=== PATIENT | male | born 1990 | race Caucasian/White ===

== ENCOUNTER 2020-05-25 03:50 | Observation (INO) | payer BC, SELFPAY ==
[2020-05-25] VITALS (14 sets, daily range): BP systolic 116–146; BP diastolic 64–91; PULSE 53–72; RESP 8–21; TEMP 36.1–37; O2SAT 97–100; BMI 22.1
--- NOTE | ~2020-05-25 | XR_ITS ---
EXAMINATION: XR finger 1st LT min 2V DATE: 05/25/2020 04:30 INDICATION: Wound at the first digit of the left hand TECHNIQUE: Dorsal palmar, lateral and oblique views of the left first digit were obtained COMPARISON: None FINDINGS: Prominent soft tissue swelling about the left thumb with suggestion of a laceration along the ulnar s maryann of the thumb. No radiopaque foreign bodies. Bone alignment is normal. No fracture. Joint spaces a re normal. IMPRESSION: 1. No osseous abnormality or radiopaque foreign body. Reviewed, dictated and finalized at location A.
--- NOTE | 2020-05-25 04:06 | ED.UPPEXIN ---
HPI - Extremity Injury (Upper) General Chief Complaint: Extremity Injury, Upper Stated Complaint: left thumb infected Time Seen by Provider: 05/25/20 03:55 Source: RN notes reviewed History of Present Illness HPI narrative: Patient presents emergency department from home for left thumb wound. Patient states symptoms began proximally 1 week ago and progressively worsened with increasing size of wound. He states the pain is increasingly worsened as well and would open this evening beginning to drain some purulent drainage. He states he works in construction and does not know if there is initial cut or possible foreign body to the area he denies any known trauma or injury. States pain with any movement of the thumb or with touching the thumb denies any fevers or chills or any other symptoms Related Data Home Medications Medication Instructions Recorded Confirmed No Home Medications 05/25/20 05/25/20 Allergies Allergy/AdvReac Type Severity Reaction Status Date / Time No Known Allergies Allergy Mild Verified 05/25/20 03:51 Review of Systems Review of Systems: Narrative: Gen.: Denies fevers or chills ENT: Denies congestion Respiratory: Denies shortness of breath or cough CV: Denies chest pain GI: Denies abdominal pain nausea, emesis Musculoskeletal: Right hand pain Neuro: Denies numbness, tingling, weakness or focal weakness Skin: See HPI Except as documented, all other systems reviewed and negative PMFSH Past Medical History Medical History (Updated 05/25/20 @ 05:29 by Warren Cantrell DO) Patient denies significant medical history Social History Social History (Updated 05/25/20 @ 04:08 by Warren Cantrell DO) Smoking packs per day: 0.5 Smoking cigarettes per day: 10.0 Gender identity (if verbalized by the patient): Male Exam Narrative: Exam Narrative: APPEARANCE: No acute distress, nontoxic, resting in bed EYES: EOMI HEENT: Normocephalic, atraumatic, OMM RESPIRATORY: No respiratory distress Clear to auscultation bilaterally with no rhonchi wheezing or rales. CARDIOVASCULAR: Regular rate and rhythm without murmurs rubs or gallops. ABDOMINAL: Soft, nontender, nondistended, no rebound or guarding MUSCULOSKELETAl: Moves all extremities. No clubbing, cyanosis or edema. The left thumb is diffusely swollen and erythematous with a large area of fluctuance and then smaller purulent drainage over the medial aspect pain with any movement of the first IP or MCP joint, the remainder of the hand is not swollen with full flexion-extension of MCP and IP joints 2 through 5, radial pulse 2+, neurovascular intact NEURO: Awake and alert. Following commands, speech normal, no focal deficits SKIN:: Warm, dry. No rashes lesions or abrasions except as noted in musculoskeletal PSYCHIATRIC: Normal affect/mood, Course Course Emergency Course: Discussed with Dr. Nicholas presentation work-up. Agrees with plan for Ancef with patient remain n.p.o. plan for or later today. Request admission the hospital service Discussed with Dr. Muniz presentation work-up. Agrees with admission at this time Discussed with patient and family results of workup and diagnosis. Discussed need for admission. Patient and family understand and agree to current treatment plan Vital Signs Vital signs: Vital Signs Temperature 97.3 F L 05/25/20 03:57 Pulse Rate 71 05/25/20 03:57 Respiratory Rate 18 05/25/20 03:57 Blood Pressure 138/69 05/25/20 03:57 Pulse Oximetry 100 05/25/20 03:57 Temperature 97.3 F L 05/25/20 03:57 Pulse Rate 71 05/25/20 03:57 Respiratory Rate 18 05/25/20 03:57 Blood Pressure 138/69 05/25/20 03:57 Pulse Oximetry 100 05/25/20 03:57 MDM - Extremity Injury (Upper) Lab Data Result diagrams: 05/25/20 04:22 05/25/20 04:22 Labs: Lab Results 05/25/20 05/25/20 05/25/20 Range/Units 04:22 04:22 04:22 WBC 9.8 (4.5-10.0) K/mm3 RBC 3.80 L (4.6-6.20) M/m
[2020-05-25 04:33] LABS: Basophils Absolute Auto 0.1 K/mm3 (0.0-0.1); Basophils Percent Auto 0.5 % (0.2-1.2); Eosinophils Absolute Auto 0.5 K/mm3 (0-0.3); Eosinophils Percent Auto 4.6 % (0-4.4); Hematocrit 33.7 % (42.0-52.0); Hemoglobin 11.9 g/dL (14.0-18.0); Immature Granulocyte Absolute 0.03 K/mm3 (0.00-0.031); Immature Granulocyte Percent A 0.3 % (0-0.5); Lymphocytes Absolute Auto 2.54 K/mm3 (0.9-3.2); Lymphocytes Percent Auto 26.1 % (18.3-44.2); Mean Corpuscular HGB Conc 35.3 g/dl (32-36); Mean Corpuscular Hemoglobin 31.3 pg (26-34); Mean Corpuscular Volume 88.7 fl (80-100); Mean Platelet Volume 9.6 fl (7.4-10.4); Monocytes Absolute Auto 0.7 K/mm3 (0.1-0.6); Monocytes Percent Auto 6.9 % (2.6-8.5); Neutrophils Percent Auto 61.6 % (45.5-73.1); Platelet Count Result 253 k/mm3 (150-375); Red Cell Distribution Width 11.9 % (11.5-14.5); White Blood Count 9.8 K/mm3 (4.5-10.0)
[2020-05-25 04:43] LABS: Prothrombin Time 12.5 Seconds (11.1-14.7)
[2020-05-25 04:44] LABS: Partial Thromboplastin Time 31.3 SECONDS (22.3-36.8)
[2020-05-25 04:44] LABS: Blood Urea Nitrogen 14 mg/dL (9-20); Calcium 8.5 mg/dL (8.4-10.2); Carbon Dioxide 28 mmol/L (22-30); Chloride 102 mmol/L (98-107); Estimated CRCL calculation 134 ml/min; Estimated Glomerular Filt Rate > 60; Glucose 91 mg/dL (75-110); Lactic Acid Reflex 0.9 mmol/L (0.7-2.1); Potassium 3.8 mmol/L (3.4-5.0); Sodium 135 mmol/L (137-145)
[2020-05-25] MEDS: MORPHINE SULFATE 4 MG/ML INJ IV PUSH (05:22)
--- NOTE | 2020-05-25 06:33 | ADMGEN ---
This patient, Boy Kelly, was admitted to 2 Medical Room 251-01 at 0630. Patient/family oriented to hospital policies and general routines including ID bracelet, bed and alarms, visiting hours, pain management, procedures, bathroom and other care routines, personal items, smoking policy, room service/diet, and visiting hours. Valuables list has been completed. Information on how to activate the Rapid Response Team has been discussed. Patient/Family are encouraged to report perceived risks to care and to ask questions if they do not understand what they are told or what they should do.
[2020-05-25] MEDS: SODIUM CHLORIDE 0.9% IV 1,000 ML 125 ML IV CONT ×2 (06:44→20:21)
--- NOTE | 2020-05-25 07:21 | PM.IMHP ---
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 He is right-hand dominant. Last he noticed some discomfort / cut on his left thumb. He does not believe there is a foreign body; however, is not really sure. He subsequently has developed some erythema and drainage from the site. He developed significant pain in his left thumb with erythema and purulent drainage. Because of worsening symptoms he proceeded to the emergency room for evaluation. He was given Ancef and radiographs were taken. No foreign body identified per my read, official read pending. He was admitted for antibiotics and I was consulted. He states other than his thumb he feels great right now. He does have significant pain in his left thumb. No fevers or chills. No nausea vomiting. Doing well otherwise. Review of Systems Review of Systems: All systems reviewed & are unremarkable except as noted in HPI and below PMFSH Past Medical History Medical History (Updated 05/25/20 @ 05:29 by Warren Cantrell DO) Patient denies significant medical history Social History Social History Smoking packs per day: 1 Smoking cigarettes per day: 20.0 Years smoked: 17 Smoking pack-years: 17.00 Smoking status: Current every day smoker Tobacco type: cigarettes Alcohol intake: current Drinks per week: 1 Substance use: current Substance use type: marijuana Other substance usage details: formally addicted Heroine and meth 3 years ago Last use: 04/15/17 Gender identity (if verbalized by the patient): Male Spiritual care concerns: No Meds Home Medications and Allergies Home Medications Medication Instructions Recorded Confirmed Type No Home Medications 05/25/20 05/25/20 History Allergies Allergy/AdvReac Type Severity Reaction Status Date / Time No Known Allergies Allergy Mild Verified 05/25/20 03:51 Vital Signs Vital Signs - 24 hr 05/25/20 03:57 05/25/20 05:30 05/25/20 06:34 Temperature 36.3 C L 36.9 C Pulse Rate 71 68 72 Respiratory Rate 18 16 16 Blood Pressure 138/69 124/73 128/76 Pulse Oximetry 100 100 100 05/25/20 06:54 Temperature 36.1 C L Pulse Rate 61 Respiratory Rate 18 Blood Pressure 136/73 Pulse Oximetry 100 Exam Narrative: Exam Narrative: Left thumb with erythema / purulent drainage. Holds in extension. Fusiform edema. No tenderness down flexor tendon. Focused around IP joint. Const: General: no acute distress HENMT: General nose exam: Normal nares present Eyes: General: appearance normal, both eyes and all related structures Resp: Effort & Inspection: normal respiratory effort Auscultation: no wheezes Cardio: Rate: regular rate GI: GI Palp: Yes Soft to palpation Neuro: Cognition (Neuro): normal cognition Speech: normal speech Psych: Mental Status: mental status grossly normal H&P: Results Labs Labs: Short CBC 05/25/20 Range/Units 04:22 WBC 9.8 (4.5-10.0) K/mm3 Hgb 11.9 L (14.0-18.0) g/dL Hct 33.7 L (42.0-52.0) % Plt Count 253 (150-375) k/mm3 BMP 05/25/20 04:22 Sodium 135 L Potassium 3.8 Chloride 102 Carbon Dioxide 28 BUN 14 Creatinine 0.80 Glucose 91 Calcium 8.5 Assessment and Plan Assessment and plan (1) Abscess of left thumb: Code(s): L02.512 - Cutaneous abscess of left hand Status: Acute Assessment and Plan: Will proceed with I&D left thumb. Risks, benefits, alternatives were discussed in extensive detail. I want to be very realistic about the risks involved as well as expectations. Reviewed consent in detail. Discussed aftercare and what to monitor for. Made sure I answered all questions answered to satisfaction and consent obtained.
--- NOTE | 2020-05-25 09:31 | PM.IMHP ---
H&P: HPI History of Present Illness Chief complaint: Left thumb abscess Narrative: Boy Kelly is a 30 year old male with a history of hepatitis C, who presented to the emergency room with increased redness, swelling, pain and drainage to his left thumb for the last 1 week. Patient states he woke up about 1 week ago and had slight redness to the medial aspect of his left thumb. The next day the redness increased and then yesterday he started having some drainage from his some as well as increased pain and sided to come to the emergency room. 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 The patient states he was at home and was trying to remove some drainage from his thumb and he became lightheaded and had a near syncopal episode. He did not actually pass out but then decided come to the ER for further evaluation. Patient states he is a smoker and has a chronic cough. He denies any fevers, chills, weakness, fatigue, chest pain, shortness of breath, nausea, vomiting, abdominal pain, leg swelling, calf pain, dizziness, syncope, or any other symptoms at this time. His initial vital sign showed he was afebrile, non tachycardic, normal blood pressure, oxygen saturation 100% on room air. Initial labs showed no leukocytosis at 9.8, slight normocytic anemia with a hemoglobin of 11.9/hematocrit 33.7%, normal coag panel, slight hyponatremia at 135, normal lactic acid level. Left thumb x-ray showed Prominent soft tissue swelling about the left thumb with suggestion of a laceration along the ulnar side of the thumb. No radiopaque foreign bodies. Bone alignment is normal. No fracture. The patient was admitted into the hospital for IV antibiotics with a consult to plastic surgery for further evaluation and possible drainage. Code status: Full code [id number]: Padmini Bernard Primary care provider: Dr. Vitale Review of Systems Review of Systems: All systems reviewed & are unremarkable except as noted in HPI and below PMFSH Past Medical History Medical History Exercise-induced asthma Hepatitis C Surgical History Surgical History No pertinent past surgical history Family History Family History Mother Asthma Hypertension Atrial fibrillation Social History Social History Smoking packs per day: 1 Smoking cigarettes per day: 20.0 Years smoked: 17 Smoking pack-years: 17.00 Smoking status: Current every day smoker Tobacco type: cigarettes Alcohol intake: current Drinks per week: 1 Alcohol use details: Social alcohol use Substance use: current Substance use type: marijuana Other substance usage details: formally addicted Heroine and meth 3 years ago Last use: 04/15/17 Living arrangements: with family Occupation/Education: occupation Additional occupation/education comments: Works construction on building new homes Gender identity (if verbalized by the patient): Male Spiritual care concerns: No Meds Home Medications and Allergies Home Medications Medication Instructions Recorded Confirmed Type No Home Medications 05/25/20 05/25/20 History Allergies Allergy/AdvReac Type Severity Reaction Status Date / Time No Known Allergies Allergy Mild Verified 05/25/20 03:51 Vital Signs Vital Signs - 24 hr 05/25/20 03:57 05/25/20 05:30 05/25/20 06:34 Temperature 97.3 F L 98.4 F Pulse Rate 71 68 72 Respiratory Rate 18 16 16 Blood Pressure 138/69 124/73 128/76 Pulse Oximetry 100 100 100 05/25/20 06:54 Temperature 97 F L Pulse Rate 61 Respiratory Rate 18 Blood Pressure 136/73 Pulse Oximetry 100 Exam Narrative: Exam Narrative: Jose
--- NOTE | 2020-05-25 11:50 | PC.NURSE ---
To OR per stretcher, IV intact.
[2020-05-25] MEDS: LACTATED RINGERS 1,000 ML 30 ML IV CONT ×2 (12:00→14:14)
--- NOTE | 2020-05-25 12:15 | WPDANESEPPF ---
Anes - Initial Pre Proc Eval Procedure: Operation Date: 05/25/20 13:00 Proposed Procedures p Incision and Drainage Left Thumb(Left) - Tonio Dinero MD Date/Time: 05/25/20 12:15 Surgeon: Geno Carter PA-C Pre Op Diagnosis: Left thumb abscess Patient Data Age: 30 Gender: M Height: 6 ft 2 in Weight: 78.4 kg Last Vital Signs Temp 36.1 C L 05/25/20 06:54 Pulse 61 05/25/20 06:54 Resp 18 05/25/20 06:54 BP 136/73 05/25/20 06:54 Pulse Ox 100 05/25/20 06:54 Allergies Allergy/AdvReac Type Severity Reaction Status Date / Time No Known Allergies Allergy Mild Verified 05/25/20 03:51 Home Medications Medication Instructions Recorded Confirmed Type No Home Medications 05/25/20 05/25/20 History Laboratory Tests 05/25/20 05/25/20 05/25/20 04:22 04:22 04:22 WBC 9.8 K/mm3 K/mm3 (4.5-10.0) RBC 3.80 M/mm3 L M/mm3 (4.6-6.20) Hgb 11.9 g/dL L g/dL (14.0-18.0) Hct 33.7 % L % (42.0-52.0) MCV 88.7 fl fl (80-100) MCH 31.3 pg pg (26-34) MCHC 35.3 g/dl g/dl (32-36) RDW 11.9 % % (11.5-14.5) Plt Count 253 k/mm3 k/mm3 (150-375) MPV 9.6 fl fl (7.4-10.4) Immature Gran % (Auto) 0.3 % % (0-0.5) Neut % (Auto) 61.6 % % (45.5-73.1) Lymph % (Auto) 26.1 % % (18.3-44.2) Louisa % (Auto) 6.9 % % (2.6-8.5) Eos % (Auto) 4.6 % H % (0-4.4) Baso % (Auto) 0.5 % % (0.2-1.2) Lymph # (Auto) 2.54 K/mm3 K/mm3 (0.9-3.2) Louisa # (Auto) 0.7 K/mm3 H K/mm3 (0.1-0.6) Eos # (Auto) 0.5 K/mm3 H K/mm3 (0-0.3) Baso # (Auto) 0.1 K/mm3 K/mm3 (0.0-0.1) Abs Immat Gran (auto) 0.03 K/mm3 K/mm3 (0.00-0.031) Absolute Neuts (auto) 6.0 K/mm3 K/mm3 (1.3-6.7) Absolute Nucleated RBC 0.0 K/mm3 K/mm3 (0.0-0.012) Nucleated RBC % 0.0 % % (0.0-0.2) PT INR APTT Sodium 135 mmol/L L mmol/L (137-145) Potassium 3.8 mmol/L mmol/L (3.4-5.0) Chloride 102 mmol/L mmol/L (98-107) Carbon Dioxide 28 mmol/L mmol/L (22-30) BUN 14 mg/dL mg/dL (9-20) Creatinine 0.80 mg/dL mg/dL (0.7-1.3) Estim Creat Clear Calc 134 ml/min ml/min Estimated GFR > 60 (59 - ) Glucose 91 mg/dL mg/dL (75-110) Lactic Acid 0.9 mmol/L mmol/L (0.7-2.1) Calcium 8.5 mg/dL mg/dL (8.4-10.2) 05/25/20 04:23 WBC RBC Hgb Hct MCV MCH MCHC RDW Plt Count MPV Immature Gran % (Auto) Neut % (Auto) Lymph % (Auto) Louisa % (Auto) Eos % (Auto) Baso % (Auto) Lymph # (Auto) Louisa # (Auto) Eos # (Auto) Baso # (Auto) Abs Immat Gran (auto) Absolute Neuts (auto) Absolute Nucleated RBC Nucleated RBC % PT 12.5 Seconds Seconds (11.1-14.7) INR 1.0 APTT 31.3 SECONDS SECONDS (22.3-36.8) Sodium Potassium Chloride Carbon Dioxide BUN Creatinine Estim Creat Clear Calc Estimated GFR Glucose Lactic Acid Calcium Patient hx anesthesia problems: none Family hx anesthesia problems: none [facility] Past Medical History Medical History Exercise-induced asthma Hepatitis C Surgical History Surgical History No pertinent past surgical history Family History Family History Mother Asthma Hypertension Atrial fibrillation Social History Social History Smoking packs per day: 1 Smoking cigarettes per day:
[2020-05-25] MEDS: BUPIVACAINE HCL 0.25% PF 30 ML VIAL 7.5 ML INFILTRATE (14:16)
[2020-05-25] MEDS: LIDOCAINE HCL 1% LOCAL INJ 20 ML VIAL 7.5 ML INFILTRATE (14:17)
--- NOTE | 2020-05-25 14:50 | PM.PROC ---
Procedure Note - Detailed Date of procedure: 05/25/20 Pre-op diagnosis: Left thumb abscess Post-op diagnosis: same Procedure performed: Incision and drainage left thumb Description of procedure: Patient was marked in the preoperative holding area with his verification. He was taken to the operating room placed supine on operating table. Anesthesia provided by anesthesiology and prepped and draped in a standard sterile fashion. Surgical time-out was taken. 1% lidocaine and 0.25% Marcaine with epinephrine was used anesthetize locally. Arm was elevated and a tourniquet inflated to 250 mm of mercury. The area of purulence was identified and extended proximally on side of the digit. It did extend towards the flexor sheath. Also dorsally. Because it was extending towards the flexor sheath I then proceeded in the palm. Fifteen blade used to make an incision over the A1 xavi and I continued dissection down. This was opened and no purulence was identified. I used an 18 gauge Angiocath and attempt to irrigate the tendon sheath and I did not get any purulence. This was closed with 4-0 nylon. I then irrigated with bacitracin containing saline on the digit. We did take cultures at the beginning of the procedure. He had already been on antibiotics however. A verify this was clean. There is no additional areas of concern. I put a suture in with 4-0 nylon. I packed with quarter-inch iodoform. Xeroform fluffs were placed followed by a lightly applied Jose Ramon wrap. Taken to PACU without difficulty. All instrument sponge counts were correct at the end of the case. Anesthesia: GLMA Surgeon: Tonio Dniero MD Estimated blood loss (mL): 1 Drains: No Packing: Yes (Quarter-inch iodoform) Pathology: yes (Culture sent) Complications: No immediate complications Condition: stable Disposition: PACU Findings: Purulence of the distal phalanx. No evidence of tracking in the flexor tendon sheath.
--- NOTE | 2020-05-25 15:00 | PC.NURSE ---
Returned from OR per bed. IV intact.
[2020-05-25] MEDS: MORPHINE SULFATE 2 MG/ML INJ IV PUSH ×2 (16:41→20:44)
--- NOTE | 2020-05-25 17:10 | PC.NURSE ---
Called to patient's room to speak with him regarding leaving hospital. Patient states he is upset and wants his stuff to leave. Patient fighting with girlfriend on the phone during this conversation. Educated patient on the need to stay for care and risk factors of leaving. Patient continues to request AMA paper.
--- NOTE | 2020-05-25 17:15 | PC.NURSE ---
Entered patient's room with AMA paper. Patient continues to be upset and tearful. Patient states he doesn't care about his loosing his thumb, hand or life. Called Dr. Garzon and voiced concern to him regarding patients statement about leaving. Dr. Garzon reports he will be to bedside.
--- NOTE | 2020-05-25 17:30 | PC.NURSE ---
Returned to patients room with AMA form and Dr. Garzon on the way. Patient on the phone with brother at this time. Patient states he does not want to leave and was sorry that he just was upset. Patient says that his relationship with his girlfriend is toxic and that he was just upset that she had left him here. Suicidal assessment was completed. Patient states he does not have any suicidal thoughts at this time nor does he have any plans. Patient wants to stay for care at this time. Per Dr. Garzon, order xanax PO 0.25mg Q6hr PRN for anxiety for patient. While in patient's room, brother states on speaker phone that he is on his way to see the patient. Patient tells him where he is located in the hospital and when visiting hours are over. Brother states he will be here and soon as he can and asked patient what kind do you want . Patient turned the volume down on his phone and states i dont care, whatever is fine and patient hung up the phone. Inquired about the items that were being brought in and educated patient on the policies of the hospital regarding foods, outside medications, tobacco/drug products. Patient states he understands. mine boss notified of conversation.
[2020-05-25] MEDS: ALPRAZolam 0.25 MG TABLET PO (18:12)
[2020-05-25] MEDS: NICOTINE (*PBKC) 21 MG PATCH 1 PATCH TRANSDERM (20:22)
[2020-05-26 05:35] LABS: Basophils Absolute Auto 0.1 K/mm3 (0.0-0.1); Basophils Percent Auto 0.8 % (0.2-1.2); Eosinophils Absolute Auto 0.5 K/mm3 (0-0.3); Eosinophils Percent Auto 6.8 % (0-4.4); Hematocrit 32.1 % (42.0-52.0); Immature Granulocyte Absolute 0.02 K/mm3 (0.00-0.031); Immature Granulocyte Percent A 0.3 % (0-0.5); Lymphocytes Absolute Auto 2.58 K/mm3 (0.9-3.2); Lymphocytes Percent Auto 38.8 % (18.3-44.2); Mean Corpuscular HGB Conc 34.3 g/dl (32-36); Mean Corpuscular Hemoglobin 30.2 pg (26-34); Mean Corpuscular Volume 88.2 fl (80-100); Mean Platelet Volume 9.5 fl (7.4-10.4); Monocytes Absolute Auto 0.5 K/mm3 (0.1-0.6); Monocytes Percent Auto 6.9 % (2.6-8.5); Neutrophils Absolute Auto 3.1 K/mm3 (1.3-6.7); Neutrophils Percent Auto 46.4 % (45.5-73.1); Platelet Count Result 232 k/mm3 (150-375); Red Blood Count 3.64 M/mm3 (4.6-6.20); Red Cell Distribution Width 11.8 % (11.5-14.5); White Blood Count 6.7 K/mm3 (4.5-10.0)
[2020-05-26 05:47] VITALS: BP 132/85; PULSE 57; RESP 16; TEMP 36.8; O2SAT 100
[2020-05-26 05:52] LABS: Blood Urea Nitrogen 8 mg/dL (9-20); Calcium 8.3 mg/dL (8.4-10.2); Carbon Dioxide 27 mmol/L (22-30); Chloride 104 mmol/L (98-107); Estimated CRCL calculation 150 ml/min; Estimated Glomerular Filt Rate > 60; Glucose 90 mg/dL (75-110); Sodium 134 mmol/L (137-145)
[2020-05-26] MEDS: SODIUM CHLORIDE 0.9% IV 1,000 ML 125 ML IV CONT (06:44)
--- NOTE | 2020-05-26 07:28 | WPDPN ---
Progress Note: A&P Assessment and Plan (1) Cellulitis of left thumb: Code(s): L03.012 - Cellulitis of left finger Status: Acute Assessment and Plan: Purulence noted yesterday however appeared to be localized. Follow-up cultures. Will begin dressing changes today twice daily with Iodoform. Continue antibiotics per hospitalist. If the erythema continues to improve I think it is reasonable to discharge home possibly later today or tomorrow. If patient is discharged home I will see him back Friday or Friday of next week. Today we had a lengthy discussion about the care. What monitor for. He is going to do twice daily dressing changes. Wash with soap and water. I am going to see him back in clinic next week. He understands he can call with any questions or concerns at any time. (2) Hepatitis C: Code(s): B19.20 - Unspecified viral hepatitis C without hepatic coma Status: Acute (3) Exercise-induced asthma: Code(s): J45.990 - Exercise induced bronchospasm Status: Acute Review of Systems Review of Systems: All systems reviewed & are unremarkable except as noted in HPI and below Exam Const: General: comfortable, no acute distress, alert and awake; No acute distress Orientation/consciousness: oriented to person HENMT: Head: normal to inspection Ears: external ears normal General nose exam: Normal external nose present Face and sinus: normal facial exam Eyes: General: appearance normal, both eyes and all related structures Periorbital: periorbital findings normal Eyelids: eyelids normal Conjunctivae: conjunctivae normal Neck: Neck: normal visual inspection Chest: Chest palpation & inspection: normal inspection of the chest Resp: Effort & Inspection: normal respiratory effort and able to speak in complete sentences GI: Inspection: normal to inspection Neuro: General: oriented to person Extrem: Other: Left thumb still has some erythema on the dorsum however much improved. No purulence or fluctuance currently. Normal sensation and good color and capillary refill of the digit. Psych: Appearance: grossly normal Mental Status: mental status grossly normal Objective Data Vital Signs Vital Signs: Vital Signs - 24 hr 05/25/20 12:21 05/25/20 14:10 05/25/20 14:25 Temperature 36.4 C L 36.2 C L Pulse Rate 60 59 L 59 L Respiratory Rate 18 8 L 11 L Blood Pressure 135/68 118/64 116/66 Pulse Oximetry 100 100 100 05/25/20 14:40 05/25/20 14:50 05/25/20 15:05 Temperature 37.0 C Pulse Rate 58 L 55 L 57 L Respiratory Rate 14 15 19 Blood Pressure 128/67 121/70 134/91 H Pulse Oximetry 99 98 97 05/25/20 15:20 05/25/20 15:50 05/25/20 16:50 Temperature 36.2 C L 36.1 C L 36.7 C Pulse Rate 67 67 61 Respiratory Rate 21 H 20 19 Blood Pressure 140/78 146/81 H 138/89 Pulse Oximetry 100 100 98 05/25/20 21:53 05/26/20 05:47 Temperature 36.9 C 36.8 C Pulse Rate 53 L 57 L Respiratory Rate 16 16 Blood Pressure 140/83 132/85 Pulse Oximetry 100 100 Intake/Output Intake/Output: Intake & Output 05/23/20 05/24/20 05/25/20 05/26/20 23:59 23:59 23:59 23:59 Intake Total 2330 1400 Output Total 975 1600 Balance 1355 -200 Meds/Results Medications: Active Medications Generic Name Dose Route Start Last Admin Trade Name Freq PRN Reason Stop Dose Admin Acetaminophen 650 mg 05/26/20 07:18 Tylenol Tablet PO Q4H PRN Mild Pain (1-3) or Fever Hydrocodone Bitart/Acetaminophen 1 tab 05/26/20 07:18 Hoople 5-325 Mg PO Q4H PRN Pain Rated 7-10 Alprazolam 0.25 mg 05/25/20 17:41 05/25/20 18:12 Xanax PO 0.25 mg Q6HR PRN Administration Anxiety Cefazolin Sodium 1 gm in 50 mls @ 100 mls/hr 05/25/20 14:00 05/26/20 06:45 Ancef 1 Gm/D5w 50 Ml Pm IVPB 100 mls/hr Q8H DEE Administration Morphine Sulfate 2 mg 05/26/20 07:19 Morphine Sulfate Inj IV PUSH Q4H PRN Pain Rated >10 Nicotine 1 patch
--- NOTE | 2020-05-26 08:20 | P.PNAN_ITS ---
Anes - Prog Note Post-Op Date/Time: 05/26/20 08:20 Cardiovascular status: normal Respiratory status: normal Airway patency: baseline Mental status: baseline Post-Op hydration status: normal Vital Signs: Last Vital Signs Temp 36.8 C 05/26/20 05:47 Pulse 57 L 05/26/20 05:47 Resp 16 05/26/20 05:47 BP 132/85 05/26/20 05:47 Pulse Ox 100 05/26/20 05:47 I/O: Intake & Output 05/25/20 05/26/20 05/26/20 23:59 07:59 15:59 Intake Total 1830 1450 Output Total 975 1600 Balance 855 -150 Laboratory Tests 05/26/20 05:11 05/26/20 05:11 05/26/20 05/26/20 05:11 05:11 WBC 6.7 RBC 3.64 L Hgb 11.0 L Hct 32.1 L MCV 88.2 MCH 30.2 MCHC 34.3 RDW 11.8 Plt Count 232 MPV 9.5 Immature Gran % (Auto) 0.3 Neut % (Auto) 46.4 Lymph % (Auto) 38.8 [place] % (Auto) 6.9 Eos % (Auto) 6.8 H Baso % (Auto) 0.8 Lymph # (Auto) 2.58 [place] # (Auto) 0.5 Eos # (Auto) 0.5 H Baso # (Auto) 0.1 Abs Immat Gran (auto) 0.02 Absolute Neuts (auto) 3.1 Absolute Nucleated RBC 0.0 Nucleated RBC % 0.0 Sodium 134 L Potassium 4.0 Chloride 104 Carbon Dioxide 27 BUN 8 L D Creatinine 0.70 Estim Creat Clear Calc 150 Estimated GFR > 60 Glucose 90 Calcium 8.3 L Microbiology 05/25/20 14:55 Thumb Left Gram Stain - Final Post-procedural complaints: none Patient Feedback: Patient satisfied with anesthetic care.
[2020-05-26] MEDS: NICOTINE (*PBKC) 21 MG PATCH 1 PATCH TRANSDERM (09:20)
[2020-05-26] MEDS: MORPHINE SULFATE 2 MG/ML INJ IV PUSH (09:26)
[2020-05-26] MEDS: ALPRAZolam 0.25 MG TABLET PO (11:47)
[2020-05-26 14:00] VITALS: BP 129/76; PULSE 66; RESP 12; TEMP 36.8; O2SAT 100
--- NOTE | 2020-05-26 15:13 | PM.DS ---
DS: Admitting Diagnosis Admitting Diagnosis Admitting Diagnosis: Cutaneous abscess of left hand DS: Discharge Diagnosis Discharge Diagnosis (1) Abscess of left thumb: Code(s): L02.512 - Cutaneous abscess of left hand Status: Acute Assessment and Plan: The patient was admitted into hospital and started on IV Ancef for infection. Plastic surgery was consulted and Dr. Angel who preformed an I&D on 05/26/2020. Patient is healing well and feeling well today. Dr. Angel feels comfortable with discharge to have him follow up in the office on Friday05/29/2020. Continue antibiotics. Patient will do dressing changes at home and packing. He was shown how by the nurse and he states he has help at home. Will discharge with [place] for pain control. Gram stain showed Gram Positive Cocci, and we are pending wound culture results. Will discharge on Bactrim for MRSA coverage and probiotic to prevent diarrhea. (2) Cellulitis of left thumb: Code(s): L03.012 - Cellulitis of left finger Status: Acute Assessment and Plan: See above. DS: Summary Hospital Course Reason for hospitalization: Boy Kelly is a 30 year old male with a history of hepatitis C, who presented to the emergency room with increased redness, swelling, pain and drainage to his left thumb for the last 1 week. His initial vital sign showed he was afebrile, non tachycardic, normal blood pressure, oxygen saturation 100% on room air. Initial labs showed no leukocytosis at 9.8, slight normocytic anemia with a hemoglobin of 11.9/hematocrit 33.7%, normal coag panel, slight hyponatremia at 135, normal lactic acid level. Left thumb x-ray showed Prominent soft tissue swelling about the left thumb with suggestion of a laceration along the ulnar side of the thumb. No radiopaque foreign bodies. Bone alignment is normal. No fracture. The patient was admitted into the hospital for IV antibiotics with a consult to plastic surgery for further evaluation and possible drainage. See above under each diagnosis as a what transpired during his admission. Status at Discharge Cognitive/behavioral status at discharge: Stable, improved. Time Spent with Patient Time attestation: Total time spent providing and/or coordinating discharge services: Time spent: Greater than 30 minutes Exam Narrative: Exam Narrative: General: 30-year-old man sitting up in bed watching TV. Appears comfortable. In no acute distress. Skin: See left thumb. No jaundice or cyanosis. Good skin turgor. Neck: Full range of motion. Supple. Respiratory: Lungs are clear to auscultation bilaterally. No wheezing,rales or rhonchi. No bony chest wall tenderness. Cardiovascular: The heart has a regular rate and rhythm without murmur. Left Thumb: There is a dressing in place to left thrumb. Decreased ROM secondary to pain and edema. NVID. Lower extremities: No lower extremity edema. Distal pulses are easily palpated. No calf tenderness to palpation. Gastrointestinal: The abdomen is soft, nontender and nondistended with active bowel sounds. Psychiatric: Lucid and oriented. Memory intact. Neurologic: No focal deficits. Speech is clear. No facial drooping. DS: Data Data Completed and Pending Labs on day of discharge: Labs from last 24 hours 05/26/20 05/26/20 05:11 05:11 WBC 6.7 RBC 3.64 L Hgb 11.0 L Hct 32.1 L MCV 88.2 MCH 30.2 MCHC 34.3 RDW 11.8 Plt Count 232 MPV 9.5 Immature Gran % (Auto) 0.3 Neut % (Auto) 46.4 Lymph % (Auto) 38.8 [place] % (Auto) 6.9 Eos % (Auto) 6.8 H Baso % (Auto) 0.8 Lymph # (Auto) 2.58 [place] # (Auto) 0.5 Eos # (Auto) 0.5 H Baso # (Auto) 0.1 Abs Immat Gran (auto) 0.02 Absolute Neuts (auto) 3.1 Absolute Nucleated RBC 0.0 Nucleated RBC % 0.0 Sodium 134 L Potassium
--- NOTE | 2020-05-31 10:36 | PC.NURSE ---
Blood cx is negative
== END 2020-05-26 16:05 | disposition home or self-care (01) ==
LOC: ANHED 05:29 → ANH2MED 05:50
PROVIDERS: Physician Assistant; Surgery Plastic and Reconstructive Surgery; Admitting Provider Family Medicine; Emergency Provider Emergency Medicine; Visit Provider Family Medicine
PROC: (CPT 10061; principal; 2020-05-25 13:00)
DX: L02.512 Cutaneous abscess of left hand (principal); L03.012 Cellulitis of left finger; B19.20 Unspecified viral hepatitis C without hepatic coma; F17.210 Nicotine dependence, cigarettes, uncomplicated; F12.90 Cannabis use, unspecified, uncomplicated; J45.990 Exercise induced bronchospasm; R55 Syncope and collapse
CPT/HCPCS: 10061; 36415; 73140; 80048; 83605; 85025; 85610; 85730; 87040; 87070; 87075; 87147; 87186; 87205; 96361; 96365; 96375; 99285; A9270; G0378; G0379; J0131; J0690; J2250; J2270; J2405; J2704; J3010; J3370; J7030; J7120

== ENCOUNTER 2021-06-25 09:47 | Emergency (ER) | payer BC, SELFPAY ==
[2021-06-25 09:52] VITALS: BP 146/86; PULSE 97; RESP 16; TEMP 36.7; O2SAT 100
[2021-06-25] MEDS: TETANUS,DIPHTHERIA,AC PERTUSSIS ADULT (0.5 ML) BOOSTRIX IM (10:25)
[2021-06-25] MEDS: KETOROLAC 30 MG/ML VIAL (*BKC) IV PUSH (10:25)
[2021-06-25 10:41] LABS: Basophils Percent Auto 0.1 % (0.2-1.2); Eosinophils Absolute Auto 0.1 K/mm3 (0-0.3); Eosinophils Percent Auto 0.9 % (0-4.4); Hematocrit 33.7 % (42.0-52.0); Hemoglobin 11.1 g/dL (14.0-18.0); Immature Granulocyte Absolute 0.02 K/mm3 (0.00-0.031); Immature Granulocyte Percent A 0.3 % (0-0.5); Lymphocytes Absolute Auto 1.88 K/mm3 (0.9-3.2); Mean Corpuscular HGB Conc 32.9 g/dl (32-36); Mean Corpuscular Hemoglobin 29.7 pg (26-34); Mean Corpuscular Volume 90.1 fl (80-100); Mean Platelet Volume 9.8 fl (7.4-10.4); Monocytes Absolute Auto 0.8 K/mm3 (0.1-0.6); Monocytes Percent Auto 9.7 % (2.6-8.5); Neutrophils Absolute Auto 5.1 K/mm3 (1.3-6.7); Platelet Count Result 177 k/mm3 (150-375); Red Blood Count 3.74 M/mm3 (4.6-6.20); Red Cell Distribution Width 12.1 % (11.5-14.5); White Blood Count 7.8 K/mm3 (4.5-10.0)
[2021-06-25 10:53] LABS: Anion Gap 8 mmol/L (8-16); Blood Urea Nitrogen 9 mg/dL (9-20); Calcium 8.5 mg/dL (8.4-10.2); Carbon Dioxide 27 mmol/L (22-30); Chloride 98 mmol/L (98-107); Estimated CRCL calculation 154 ml/min; Estimated Glomerular Filt Rate > 60; Glucose 111 mg/dL (65-110); Potassium 3.9 mmol/L (3.4-5.0); Sodium 133 mmol/L (137-145)
--- NOTE | 2021-06-25 11:44 | ED.GENADULT ---
HPI - General Adult General Chief complaint: Skin/Abscess/Foreign Body Stated complaint: wound Time Seen by Provider: 06/25/21 09:51 Source: patient and RN notes reviewed Mode of arrival: ambulatory Limitations: no limitations History of Present Illness HPI narrative: Patient a 31-year-old male who presents with wound and swelling to the right ankle noticed yesterday was unsure as to whether or not he may have been bit by an insect patient notes swelling and tenderness with some drainage from the lesion notes his tetanus is not up-to-date presents in no distress has not been seen for this nor is he taken anything for symptoms denies any fever chills nausea vomiting or immunocompromise Related Data Allergies Allergy/AdvReac Type Severity Reaction Status Date / Time No Known Allergies Allergy Mild Verified 06/25/21 10:11 Review of Systems Review of Systems: All systems reviewed & are unremarkable except as noted in HPI and below PMFSH Past Medical History Medical History (Updated 06/25/21 @ 11:47 by Tito Gramajo PA-C) Exercise-induced asthma Hepatitis C Surgical History Surgical History No pertinent past surgical history Family History Family History Mother Asthma Hypertension Atrial fibrillation Social History Social History Smoking packs per day: 1 Smoking cigarettes per day: 20.0 Years smoked: 17 Smoking pack-years: 17.00 Smoking status: Current every day smoker Tobacco type: cigarettes Alcohol intake: current Drinks per week: 1 Alcohol use details: Social alcohol use Substance use: current Substance use type: marijuana Other substance usage details: formally addicted Heroine and meth 3 years ago Last use: 04/15/17 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 HEAD: Normocephalic, atraumatic. EYES: PERRLA and EOMI. ENT: Nares clear, no rhinorrhea or epistaxis. Mucous membranes moist. CHEST: Clear to auscultation. No respiratory distress. No wheezes rales or rhonchi HEART: Regular rate and rhythm. No murmur heard. EXTREMITIES: Normal range of motion. No edema. SKIN: Warm, dry, no rash. Small wound to the medial aspect of the right medial aspect of the ankle with serous drainage with some redness and tenderness surrounding the wound along the medial aspect of the ankle NEURO: No focal deficits. Alert and oriented x3. Neurovascularly intact PSYCH: Normal mood and affect. Course Course Emergency Course: Patient in the room in no distress aware of case findings treatment plan diagnosis agreeing to follow-up as instructed or to return if symptoms worsen or concerns wound cultures were obtained antibiotics given the emergency department provided with reasons to return Vital Signs Vital signs: Vital Signs Temperature 98.1 F 06/25/21 09:52 Pulse Rate 97 06/25/21 09:52 Respiratory Rate 16 06/25/21 09:52 Blood Pressure 146/86 H 06/25/21 09:52 Pulse Oximetry 100 06/25/21 09:52 Temperature 98.1 F 06/25/21 09:52 Pulse Rate 97 06/25/21 09:52 Respiratory Rate 16 06/25/21 09:52 Blood Pressure 146/86 H 06/25/21 09:52 Pulse Oximetry 100 06/25/21 09:52 Medical Decision Making MDM Narrative Medical decision making narrative: Patients injury or pain is consistent with musculoskeletal etiology. No signs of neurological or vascular compromise on exam. Compartments and tisues are soft without signs of compartment syndrome. Pain is felt appropriate for further evaluation on an outpatient basis. Will be treated for cellulitis and referred to primary care for further evaluation
[2021-06-25 11:56] VITALS: BP 133/77; PULSE 88; RESP 16; O2SAT 100
== END 2021-06-25 11:58 | disposition home or self-care (01) ==
PROVIDERS: Emergency Medicine Emergency Medical Services; Emergency Provider Emergency Medicine
DX: L03.115 Cellulitis of right lower limb (principal); Z86.19 Personal history of other infectious and parasitic diseases; J45.990 Exercise induced bronchospasm; F17.210 Nicotine dependence, cigarettes, uncomplicated; Z23 Encounter for immunization
CPT/HCPCS: 36415; 80048; 85025; 87070; 87075; 87077; 87147; 87186; 87205; 90471; 90715; 96365; 96375; 99284; J1885

== ENCOUNTER 2021-08-30 20:05 | Emergency (ER) | payer BC, SELFPAY ==
--- NOTE | ~2021-08-30 | XR_ITS ---
EXAMINATION: XR forearm RT 2V DATE: 08/30/2021 20:33 INDICATION: Right wrist laceration. TECHNIQUE: 2 views of right forearm on 4 radiographs were obtained. COMPARISON: None. FINDINGS: Bone alignment is normal. No fracture. Joint spaces are well maintained. There is no elbow joint effusion. IMPRESSION: 1. No fracture or radiopaque foreign body. Reviewed, dictated and finalized at location A.
[2021-08-30 20:09] VITALS: BP 137/74; PULSE 102; RESP 20; TEMP 36.2; O2SAT 100
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
[2021-08-30 22:00] VITALS: BP 124/76; PULSE 82; RESP 16; O2SAT 100
[2021-08-30] MEDS: LIDOCAINE HCL 1% LOCAL INJ 20 ML VIAL 10 ML INFILTRATE (22:43)
--- NOTE | 2021-08-30 23:00 | PC.NURSE ---
Pt refusing IV abx and IM shot. Requesting PO meds. EDP notified.
[2021-08-30 23:21] VITALS: BP 133/60; PULSE 74; RESP 16; O2SAT 100
[2021-08-30] MEDS: CEPHALEXIN 500 MG CAPSULE PO (23:27)
== END 2021-08-30 23:28 | disposition home or self-care (01) ==
PROVIDERS: Emergency Provider Emergency Medicine
DX: S51.811A Laceration without foreign body of right forearm, initial encounter (principal); J45.990 Exercise induced bronchospasm; Z86.19 Personal history of other infectious and parasitic diseases; F17.210 Nicotine dependence, cigarettes, uncomplicated; Y09 Assault by unspecified means
CPT/HCPCS: 12002; 73090; 99283; A9270

== ENCOUNTER 2024-04-08 11:29 | Emergency (ER) | payer BC, SELFPAY ==
[2024-04-08 11:44] VITALS: BP 101/53; PULSE 58; RESP 18; TEMP 36.4; O2SAT 100
--- NOTE | 2024-04-08 11:52 | ECG_ITS ---
SEE SCANNED COPY FOR CONFIRMED REPORT MTDD
[2024-04-08 12:38] LABS: Basophils Percent Auto 0.3 % (0.2-1.2); Eosinophils Percent Auto 0.4 % (0-4.4); Hematocrit 35.6 % (42.0-52.0); Hemoglobin 12.2 g/dL (14.0-18.0); Immature Granulocyte Absolute 0.03 K/mm3 (0.00-0.031); Immature Granulocyte Percent A 0.4 % (0-0.5); Lymphocytes Absolute Auto 1.76 K/mm3 (0.9-3.2); Lymphocytes Percent Auto 23.3 % (18.3-44.2); Mean Corpuscular HGB Conc 34.3 g/dl (32-36); Mean Corpuscular Hemoglobin 29.4 pg (26-34); Mean Corpuscular Volume 85.8 fl (80-100); Monocytes Absolute Auto 0.2 K/mm3 (0.1-0.6); Monocytes Percent Auto 3.2 % (2.6-8.5); Neutrophils Absolute Auto 5.5 K/mm3 (1.3-6.7); Neutrophils Percent Auto 72.4 % (45.5-73.1); Platelet Count Result 260 k/mm3 (150-375); Red Blood Count 4.15 M/mm3 (4.6-6.20); Red Cell Distribution Width 11.5 % (11.5-14.5); White Blood Count 7.6 K/mm3 (4.5-10.0)
[2024-04-08 12:47] LABS: Alanine Aminotransferase 24 U/L (6-50); Albumin Level 3.9 g/dL (3.5-5.1); Alkaline Phosphatase 87 U/L (38-126); Anion Gap 6 mmol/L (4-12); Aspartate Amino Transferase 29 U/L (17-59); Bilirubin,Total 0.6 mg/dL (0.2-1.3); Blood Urea Nitrogen 12 mg/dL (9-20); Calcium 9.3 mg/dL (8.4-10.2); Carbon Dioxide 24 mmol/L (22-30); Chloride 104 mmol/L (98-107); Estimated CRCL calculation 122 ml/min; Estimated Glomerular Filt Rate > 60; Glucose 148 mg/dL (65-110); Potassium 3.5 mmol/L (3.4-5.0); Sodium 134 mmol/L (137-145)
--- NOTE | 2024-04-08 14:02 | ED.DIZZY ---
HPI - Dizziness General Chief Complaint: Dizziness Stated Complaint: withdrawals Time Seen by Provider: 04/08/24 13:59 History of Present Illness HPI Narrative: Patient is a 34-year-old male with history of untreated hepatitis-C, opiate use disorder here from [facility] with dizziness and hypotension after receiving Suboxone. Patient states that he has been a daily fentanyl user, typically snorts fentanyl. He arrived at [facility] yesterday. Today he received his 1st dose of Suboxone this morning and felt as though he went into precipitated withdrawal. He describes his symptoms as nausea, restlessness, pending sense of doom, diaphoresis. They gave him an additional 2 doses of Suboxone which seems to continually worsened the symptoms and prompted them to send him into the emergency department for evaluation. He was reportedly hypotensive at facility complaining of dizziness. His blood pressure there was in the 80s systolic. He currently states that he feels quite a bit better, just feels drowsy at this time with mild nausea. No longer feels diaphoretic or restless. He denies any other substance use. He denies any history of any cardiac issues. No cough, congestion, fever, chills. Related Data Allergies Allergy/AdvReac Type Severity Reaction Status Date / Time No Known Allergies Allergy Mild Verified 04/08/24 11:49 Review of Systems Review of Systems: All systems reviewed & are unremarkable except as noted in HPI and below PMFSH Past Medical History Medical History (Updated 04/08/24 @ 15:30 by Nadira Hickey MD) Exercise-induced asthma Hepatitis C Surgical History Surgical History No pertinent past surgical history Family History Family History Mother Asthma Hypertension Atrial fibrillation Social History Social History Smoking packs per day: 1 Smoking cigarettes per day: 20.0 Years smoked: 17 Smoking pack-years: 17.00 Smoking status: Current every day smoker Tobacco type: cigarettes Alcohol intake: current Drinks per week: 1 Alcohol use details: Social alcohol use Substance use: current Substance use type: marijuana Other substance usage details: formally addicted Heroine and meth 3 years ago Last use: 04/15/17 Living arrangements: with family Occupation/Education: occupation 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 HEAD: Normocephalic, atraumatic. EYES: PERRLA and EOMI. ENT: Nares clear. Mucous membranes moist. NECK: Supple. CHEST: Clear to auscultation. No respiratory distress. HEART: Regular rate and rhythm. Normal peripheral pulses. ABDOMEN: Soft, nontender, nondistended. EXTREMITIES: Normal range of motion. No edema. SKIN: Warm, dry, no rash. NEURO: No focal deficits. Alert and oriented x3. PSYCH: Normal mood and affect. Course Course Emergency Course: Chart review performed. Patient here from [facility] with dizziness and hypotension after receiving 3 doses of Suboxone for the first time. Triage vitals show 101/53, HR of 58, otherwise normal. Triage workup shows normal CBC, CMP unremarkable. Patient seen evaluated, nontoxic appearing. Blood pressure has improved after IV fluids. He is tolerating p.o. at this time. Dose of Zofran will be given. Anticipate his symptoms are all likely due to opiate use disorder and precipitated withdrawal from his 1st doses of Suboxone at the treatment facility today. He does not currently appear to be in opiate withdrawal. COWS currently 2. No additional suboxone indicated at this time. Patient continues to tolerate p.o
[2024-04-08] MEDS: LACTATED RINGERS 1,000 ML 999 ML IV CONT (14:12)
[2024-04-08 14:15] VITALS: BP 100/58; PULSE 73; RESP 16; O2SAT 98
[2024-04-08 15:51] VITALS: BP 110/70; PULSE 82; RESP 16; TEMP 36.8; O2SAT 100
== END 2024-04-08 15:53 | disposition home or self-care (01) ==
PROVIDERS: Student in an Organized Health Care Education/Training Program; Emergency Provider Student in an Organized Health Care Education/Training Program
DX: R42 Dizziness and giddiness (principal); F11.20 Opioid dependence, uncomplicated; B19.20 Unspecified viral hepatitis C without hepatic coma; J45.990 Exercise induced bronchospasm; F17.210 Nicotine dependence, cigarettes, uncomplicated; R94.31 Abnormal electrocardiogram [ECG] [EKG]
CPT/HCPCS: 36415; 80053; 85025; 93005; 96360; 99284; J7120